=== PATIENT | female | born 1990 | race Two or more races ===

== ENCOUNTER 2023-12-27 06:38 | Outpatient (REF) | payer OTHER, SELFPAY ==
--- NOTE | ~2023-12-27 | US_ITS ---
EXAMINATION: US ABDOMEN COMPLETE CLINICAL INFORMATION: Elevated transaminase. COMPARISON: None available. TECHNIQUE: Real-time imaging of the abdominal viscera. Limited visualization due to bowel gas. FINDINGS: PANCREAS: Limited visualization of pancreatic tail and head. Imaged portion of pancreatic body is unremarkable. ABDOMINAL AORTA: Limited visualization. Imaged portions of mid to distal abdominal aorta are nonaneurysmal. INFERIOR VENA CAVA: Visualized portions are normal. LIVER: Borderline hepatomegaly, 15.9 cm. Increased hepatic parenchymal heterogeneity and echogenicity could be associated with hepatocellular disease/hepatic steatosis and substantially limits visualization. Correlation with liver function tests and clinical exam recommended to determine further management. GALLBLADDER: No gallstones. No gallbladder wall thickening. COMMON BILE DUCT: Normal in caliber measuring 0.30 cm in diameter. RIGHT KIDNEY: No hydronephrosis. No renal calculi. Limited visualization. The kidney measures 11.3 cm in maximum dimension. LEFT KIDNEY: 0.8 cm echogenic upper pole cortical focus is difficult to characterize due to limited visualizations. Differential considerations include lesion such as an angiomyolipoma versus nonobstructive calcification. 1.0 cm and 0.4 cm mid to lower pole calculi. No hydronephrosis. The kidney measures 11.7 cm in maximum dimension. SPLEEN: Normal. The spleen measures 11.0 cm in maximum dimension. FREE FLUID: None. US/US abdomen complete IMPRESSION: 1. Borderline hepatomegaly, 15.9 cm. Increased hepatic parenchymal heterogeneity and echogenicity could be associated with hepatocellular disease/hepatic steatosis and substantially limits visualization. Correlation with liver function tests and clinical exam recommended to determine further management. 2. Left renal 0.8 cm echogenic upper pole cortical focus is difficult to characterize due to limited visualizations. Differential considerations include lesion such as an angiomyolipoma versus nonobstructive calcification. 3. Left renal 1.0 cm and 0.4 cm mid to lower pole calculi. No hydronephrosis. This study was presented today, January 17, 2024, for interpretation. Stat results provided at this time as requested by referring provider.
== END 2023-12-27 06:39 | disposition home or self-care (01) ==
LOC: HO.UMASIMG 06:38
PROVIDERS: Visit Provider Family Medicine
DX: L41.3 Small plaque parapsoriasis (principal); L40.4 Guttate psoriasis; R74.01 Elevation of levels of liver transaminase levels
CPT/HCPCS: 76700

== ENCOUNTER 2025-04-04 06:15 | Outpatient (REF) | payer OTHER, SELFPAY ==
--- NOTE | ~2025-04-04 | US_ITS ---
EXAMINATION: US PELVIS TRANSABDOMINAL AND TRANSVAGINAL HISTORY: [facility]HEA, ?[facility] COMPARISON: There are no prior studies available for comparison. TECHNIQUE: Transabdominal and endovaginal real-time 2D dow-scale ultrasound was performed. FINDINGS: Uterus: The uterus is normal in size, measuring 7.6 x 3.1 x 4.0 cm. Myometrium has a normal echotexture. No fibroids are identified. Endometrium: The endometrial stripe measures 5 mm in thickness. There are nabothian cysts in the cervix. Right ovary: The right ovary measures 2.7 x 2.0 x 2.0 cm. The right ovary is normal in size and echotexture. Left ovary: The left ovary measures 2.8 x 1.8 x 1.8 cm. The left ovary is normal in size and echotexture. Pelvic fluid: none. US/US pelvic and transvaginal IMPRESSION: Nabothian cysts in the cervix. Otherwise unremarkable pelvic ultrasound. Electronically signed by: Say Lozano MD 04/04/2025 03:39 PM EDT
== END 2025-04-04 06:16 | disposition home or self-care (01) ==
LOC: HO.UMASIMG 06:15
PROVIDERS: Visit Provider Family Medicine
DX: N91.2 Amenorrhea, unspecified (principal)
CPT/HCPCS: 76830; 76856

== ENCOUNTER → 2025-04-04 15:00 | Outpatient (BNV) | payer OTHER, SELFPAY | PROVIDERS: Visit Provider Radiology Diagnostic Radiology | DX: N88.8 Other specified noninflammatory disorders of cervix uteri (principal); N91.0 Primary amenorrhea | CPT/HCPCS: 76830; 76856 ==